=== PATIENT | male | born 1950 ===

== ENCOUNTER → 2017-11-29 | Outpatient (CLI) | payer OTHER | END | disposition home or self-care (01) | LOC: PPH VACUNA 16:16 | DX: Z23 Encounter for immunization (principal) ==

== ENCOUNTER → 2018-01-07 | Day surgery (SDC) | payer OTHER ==
[~2018-01-07] MED LIST: ASA81 MG; BENICAR20 MG; LIPITOR20 MG
== END | disposition home or self-care (01) ==
LOC: CIR.AMB 05:48
DX: D30.3 Benign neoplasm of bladder (principal)